=== PATIENT | female | born 1935 | race Caucasian/White ===

== ENCOUNTER → 2017-04-15 | Outpatient (CLI) | payer MEDICARE, OTHER ==
[~2017-04-15] MED LIST: ACTOS45 MG PO; AMARYL2 MG PO; AVAPRO300 MG PO; BIOTIN1000 MCG PO; CALCIUM CARBON600 MG PO; LEVOTHROID (S100 MCG PO; NORVASC5 MG PO; VITAMIN D1000 UNIT PO; ZOLOFT50 MG PO
== END | disposition disaster alternative care site (69) ==
LOC: GAMB 15:18
DX: R55 Syncope and collapse (principal); M25.562 Pain in left knee; R53.1 Weakness; R42 Dizziness and giddiness; W01.0XXA Fall on same level from slipping, tripping and stumbling without subsequent striking against object, initial encounter
CPT/HCPCS: A0425; A0427